=== PATIENT | female | born 1930 | race Caucasian/White ===

== ENCOUNTER 2017-09-09 05:28 | Inpatient (IN) | payer OTHER ==
[~2017-09-09] VITALS: Ht 152.4 cm; Wt 80.7 kg
[2017-09-09] MEDS ORDERED: MELO15TA13 PO (06:07)
[2017-09-09] MEDS ORDERED: LOSA50TA3 PO (06:07)
[2017-09-09] MEDS ORDERED: LR 1,000 ML IV SCH (11:38)
[2017-09-09] MEDS ORDERED: ONDANSETRON HCL 4 MG/2 ML VIAL IVP PRN ×2 (11:45→13:00)
[2017-09-09] MEDS ORDERED: MORPHINE 4 MG/ML INJ. SYRINGE IVP PRN ×3 (11:45)
[2017-09-09] MEDS ORDERED: ONDANSETRON 4 MG ODT TAB PO PRN (13:00)
[2017-09-09] MEDS ORDERED: HYDROcodone/ACETAMIN 5-325 MG TAB (NORCO/ VICODIN) PO PRN (13:00)
[2017-09-09] MEDS: MORPHINE 4 MG/ML INJ. SYRINGE ONE ×2 (13:20→13:33)
[2017-09-09 13:50] VITALS: BP_SYST 159
[2017-09-09 14:00] VITALS: BP_SYST 159
[2017-09-09] MEDS: D5/0.45 NS 1,000 ML IV SCH (14:47)
[2017-09-09 14:48] LABS: ALBUMIN 3.4 g/dL (3.4-4.8); CALCIUM 9.5 mg/dL (8.4-11.0)
[2017-09-09] MEDS: ACETAMINOPHEN 500 MG TABLET PO PRN ×2 (15:55→21:06)
[2017-09-09 16:40] VITALS: BP_SYST 156
[2017-09-09] MEDS ORDERED: SUCCINYLCHOLINE CHLORIDE 20 MG/ML(QUELICIN) IVP ONE (19:08)
[2017-09-09] MEDS ORDERED: SEVOFLURANE 15 MIN GAS INH ONE (19:08)
[2017-09-09] MEDS ORDERED: PROPOFOL 200MG/ 20ML VIAL (DIPRIVAN) IV ONE (19:08)
[2017-09-09] MEDS ORDERED: fentaNYL CITRATE 250 MCG/5 ML AMP IV ONE (19:08)
[2017-09-09] MEDS ORDERED: LR 1,000 ML IV.SOLN IV ONE (19:08)
[2017-09-09] MEDS ORDERED: MIDAZOLAM HCL 5 MG/ML VIAL (VERSED) IV ONE (19:08)
[2017-09-09] MEDS ORDERED: NS IRRIG SOLN 1000 ML IR ONE (19:08)
[2017-09-09] MEDS ORDERED: ONDANSETRON HCL 4 MG/2 ML VIAL IVP ONE (19:08)
[2017-09-09] MEDS ORDERED: CLINDAMYCIN PHOSPHATE 600 mg/50mL D5W IV ONE (19:08)
[2017-09-09] MEDS ORDERED: LIDOCAINE/EPI 1% 1:100000 20 ML VIAL INJ ONE (19:08)
[2017-09-09] MEDS ORDERED: DEXAMETHASONE SOD PHOSPHATE 4 MG/ML VIAL IVP ONE (19:08)
[2017-09-09 19:50] VITALS: BP_SYST 150
[2017-09-09] MEDS ORDERED: CALCIUM CARBONATE 650 MG TABLET PO SCH (21:00)
[2017-09-09] MEDS: CALCIUM CARBONATE/VITAMIN D3 1 TAB TABLET PO SCH (21:07)
[2017-09-09] MEDS: NORMAL SALINE 5 ML DISP.SYRIN IVF SCH (21:07)
[2017-09-10] VITALS: BP_SYST 125
[2017-09-10 04:00] VITALS: BP_SYST 132
[2017-09-10] MEDS: NORMAL SALINE 5 ML DISP.SYRIN IVF SCH (05:55)
[2017-09-10] MEDS ORDERED: LEVOTHYROXINE SODIUM 0.125 MG TABLET PO SCH (07:00)
[2017-09-10 08:22] VITALS: BP_SYST 127
[2017-09-10] MEDS: ACETAMINOPHEN 500 MG TABLET PO PRN (08:43)
[2017-09-10] MEDS: CALCIUM CARBONATE/VITAMIN D3 1 TAB TABLET PO SCH (08:43)
[2017-09-10] MEDS: D5/0.45 NS 1,000 ML IV SCH (08:47)
[2017-09-10] MEDS ORDERED: LOSARTAN POTASSIUM 50 MG TABLET (COZAAR) PO SCH (09:00)
[2017-09-10 10:49] LABS: CALCIUM 9.3 mg/dL (8.4-11.0)
[2017-09-10 12:00] VITALS: BP_SYST 130
[2017-09-10 13:28] VITALS: BP_SYST 130
[2017-09-10] MEDS ORDERED: HYDR-1189 (13:33)
[2017-09-10] MEDS ORDERED: CALC500T3 PO (13:34)
== END 2017-09-10 14:45 | disposition home or self-care (01) | DRG 627 ==
LOC: SMU 05:28
PROVIDERS: ADMIT Otolaryngology; ATTEND Otolaryngology
PROC: 0GTH0ZZ Resection of Right Thyroid Gland Lobe, Open Approach (ICD-10-PCS; 2017-09-09)
PROC: 0GTG0ZZ Resection of Left Thyroid Gland Lobe, Open Approach (ICD-10-PCS; principal; 2017-09-09 07:30)
DX: C73 Malignant neoplasm of thyroid gland (principal); E04.2 Nontoxic multinodular goiter; Z79.899 Other long term (current) drug therapy; Z90.710 Acquired absence of both cervix and uterus; Z88.0 Allergy status to penicillin
CPT/HCPCS: 36415; 71020-TC; 82040-TC; 82310-TC; 83970; 87081; 88307; C1782; J0330; J1100; J2250; J2270; J2405; J2704; J3010; J3490; J7030; J7120

== ENCOUNTER 2020-09-04 16:14 | Inpatient (IN) | payer OTHER, SELFPAY ==
[~2020-09-04] VITALS: Ht 152.4 cm; Wt 73.5 kg
[~2020-09-04 16:14] MED LIST: CALC500T3 PO; HYDR-1189; LOSA50TA3 PO; MELO15TA13 PO
[2020-09-04 16:20] VITALS: BP_SYST 120
--- NOTE | 2020-09-04 16:25 | NUR ---
Patient to ER bed 4 to gown for evaluation. Side rails up. Report given to DANIELLA LEVY .
--- NOTE | 2020-09-04 16:32 | NUR ---
ER Dr. LOYOLA at bedside examining patient.
--- NOTE | 2020-09-04 16:50 | NUR ---
pt bib her son for multiple c/o, hypotension, body aches, gen weak after receiving chemo. 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 right port-a-cath access. gambling monitor placed. will continue to monitor
[2020-09-04] MEDS ORDERED: NYSTATIN 500,000 UNITS/5 ML UDC PO ONE (17:00)
--- NOTE | 2020-09-04 17:05 | NUR ---
# 20 gauge angiocath placed to LAC. Use of asceptic technique. Opsite placed over site. Blood return noted. Blood for lab drawn from site. Flushed with 10 cc of normal saline. No evidence of infiltration noted. Patient tolerated well.
[2020-09-04 17:23] LABS: HEMOGLOBIN 8.1 g/dL (12.0-16.0); MEAN CORPUSCULAR HEMOGLOBIN 31 pg (27-31); MEAN CORPUSCULAR HGB CONC 33 % (32-36)
--- NOTE | 2020-09-04 17:30 | NUR ---
ua obtained via straight cath
[2020-09-04 17:38] LABS: HEMATOCRIT 24.8 % (36-48); MEAN CORPUSCULAR VOLUME 95 fL (79.0-98.0); RED BLOOD CELL COUNT(AUTO) 2.63 MIL/uL (4.2-6.2); RED CELL DISTRIBUTION WIDTH 14.6 % (9.0-15.0); WHITE BLOOD COUNT (AUTO) 12.2 K/uL (4.8-10.8)
[2020-09-04 17:43] LABS: ANION GAP 4 (5-15); CALCIUM 7.2 mg/dL (8.4-11.0); CHLORIDE 103 mmol/L (98-107); GLUCOSE 68 mg/dL (70-99); SODIUM SERUM 135 mmol/L (136-145)
[2020-09-04 17:44] LABS: CREATININE 1.24 mg/dL (0.55-1.30); UREA NITROGEN, BLOOD 26 mg/dL (8-21)
[2020-09-04 17:45] LABS: PLATELET COUNT (AUTO) 72 K/uL (130-430)
[2020-09-04 17:49] LABS: ALANINE AMINOTRANSFERASE 24 U/L (12-78); ALBUMIN 1.1 g/dL (3.4-4.8); ASPARTATE AMINOTRANSFERASE 41 U/L (10-37); TOTAL BILIRUBIN 0.7 mg/dL (0.0-1.0)
[2020-09-04 18:14] LABS: TOTAL IRON BIND. CAPACITY 91 ug/dL (250-450)
[2020-09-04 18:25] LABS: BAND % (MANUAL) 25 % (0-6); LYMPHOCYTES % (MANUAL) 12 % (20-46)
[2020-09-04 18:26] LABS: ATYPICAL LYMPHOCYTES % 0 % (0-0); BASOPHILS % (MANUAL) 0 % (0-2); EOSINOPHILS % (MANUAL) 0 % (0-7); METAMYELOCYTES % 3 % (0-0); MONOCYTES % (MANUAL) 2 % (0-11)
[2020-09-04 18:27] LABS: MYELOCYTES % 1 % (0-0)
[2020-09-04 18:28] LABS: CORRECTED WHITE BLOOD COUNT 11.6 K/uL (4.5-11.0)
--- NOTE | 2020-09-04 18:50 | NUR ---
covid swab collected and sent to the lab
--- NOTE | 2020-09-04 18:59 | NUR ---
Medication reconciliation completed with information provided by pt. Any prior medication reconciliation on file was reviewed and corrected.
[2020-09-04] MEDS ORDERED: NACL 0.9% 1,000 ML IV ONE ×3 (19:00→20:30)
--- NOTE | 2020-09-04 19:10 | NUR ---
currently infusing NS 500ml per MD order.
[2020-09-04 19:12] LABS: CLARITY/URINE HAZY (CLEAR); COLOR,URINE YELLOW (YELLOW); GLUCOSE,URINE NEGATIVE (NEGATIVE); KETONES,URINE NEGATIVE (NEGATIVE); PH,URINE 5.5 (5.0-8.0); PROTEIN URINE NEGATIVE (NEGATIVE)
[2020-09-04 19:13] LABS: BILIRUBIN,URINE NEGATIVE (NEGATIVE); BLOOD, URINE TRACE (NEGATIVE); LEUKOCYTE ESTERASE ,URINE NEGATIVE (NEGATIVE); NITRITE, URINE NEGATIVE (NEGATIVE); UROBILINOGEN,URINE 0.2 (0.2-1.0)
--- NOTE | 2020-09-04 19:14 | NUR ---
Report received from Liza LEVY for continuation of care.
[2020-09-04 19:15] LABS: BACTERIA,URINE MANY /HPF (None Seen); RBC,URINE 0-3 /HPF (0-3); WBC,URINE 0-3 /HPF (0-3)
[2020-09-04 19:17] LABS: TRICHOMONAS,URINE None Seen /HPF (None Seen); YEAST,URINE Moderate /HPF (None Seen)
[2020-09-04 19:18] LABS: MUCUS,URINE None Seen /LPF (None Seen)
--- NOTE | 2020-09-04 19:18 | NUR ---
Care endorsed to Phuong LEVY. Pt in stable condition.
[2020-09-04] MEDS ORDERED: cefTRIAXone 1 GM in D5W 50 ML IV ONE (19:30)
--- NOTE | 2020-09-04 19:50 | NUR ---
Note undone in EDM - 09/04/20 at 2151 by [id number] Patient given written and verbal discharge instructions and verbalizes understanding. Pt d/c to [facility]. ER discussed with patient the results and treatment provided. Patient in stable condition. ID arm band removed. Rx of HTZ 25 MG given. Patient educated on pain management and to follow up with PMD. Opportunity for questions provided and answered. Medication side effect fact sheet provided.
--- NOTE | 2020-09-04 20:36 | NUR ---
Pt blood consent signed. Waiting for PT INR labs for blood form to be sent to lab.
[2020-09-04] MEDS ORDERED: cefTRIAXone 1 GM VIAL ONE (21:01)
[2020-09-04 21:11] LABS: INR 1.2 (0.8-1.2)
--- NOTE | 2020-09-04 21:48 | NUR ---
Patient will be admitted to care of Dr Blair/ [facility]. Admitted to tele unit. Will go to room 114. Belongings list completed. Complete and up to date summary report printed. SBAR report to be given at bedside with opportunity for questions.
[2020-09-04 22:00] VITALS: BP_SYST 111
--- NOTE | 2020-09-04 22:00 | NUR ---
ADMISSION: The patient, MAHAD GONZALEZ V, 89 y/o, F admitted by KOLE IRIZARRY MD, was given written information regarding hospital policies, unit procedures and contact persons. Valuables were checked and DOCUMENTED.
--- NOTE | 2020-09-04 22:41 | NUR ---
Initial phys assessment Physical assessment done, pictures taken, patient resting in comfortable position, call light w/in reach.
[2020-09-04] MEDS ORDERED: ALBUMIN HUMAN 5% 500 ML IV ONE (22:45)
[2020-09-04] MEDS ORDERED: ALBUTEROL SULFATE 0.083% 2.5 MG/3 ML VIAL.NEB INH PRN (22:45)
[2020-09-04] MEDS ORDERED: NALOXONE HCL 0.4 MG/ML AMP (NARCAN) IVP PRN (22:45)
[2020-09-04 22:54] VITALS: BP_SYST 97
[2020-09-04] MEDS: NACL 0.9% 1,000 ML IV SCH (23:57)
--- NOTE | 2020-09-04 23:57 | NUR ---
IVF Hung new bag of NS and infusing as ordered, tolerating, no infiltration noted.
--- NOTE | 2020-09-05 00:04 | NUR ---
Dr. Solis s/w Dr. Solis and informed 5% Albumin is not available tonight and she said cancel tonight; TORB. she will wait till AM and review B/P.
[2020-09-05 00:25] VITALS: BP_SYST 97
[2020-09-05] MEDS: CEFEPIME 2 GM in D5W 100 ML IV SCH ×3 (00:57→22:00)
[2020-09-05] MEDS ORDERED: CEFEPIME 2 GM/VIAL (MAXIPIME) ONE (01:02)
--- NOTE | 2020-09-05 01:15 | NUR ---
consent for blood transf Consent for blood transfusion did not have witness signature from ER nurse, patient and doctor had signed. I asked patient again and witnessed consent, then I signed on consent form as witness, in order to proceed with transfusion.
--- NOTE | 2020-09-05 01:29 | NUR ---
BT INITIATION: Consent signed per patient, she is AOx4, agreeing to administration of blood. Blood has been type and crossmatched. Blood sent from blood bank. Information on unit of blood checked against patient wristband at bedside by two nurses. All information matches. Patient or responsible libertarian informed of potential complications associated with blood transfusion. Informed of possible transfusion reaction symptoms. Aware of need to notify nurse at once of itching, shortness of breath, flushing, feeling of impending doom, or other symptoms not previously present. Vital signs taken within 5 minutes prior to initiation of transfusion. RN will remain with patient for first 15 minutes of transfusion at which time vital signs will be re-assessed.
--- NOTE | 2020-09-05 01:33 | NUR ---
IV start Blood transfusion currently infusing via IV to LAC. New IV was started on left wrist in order to complete transfusion of antibiotic. #22 angio cath was placed to left wrist. Use of asceptic technique and blood return noted. Flushed with 10 cc of normal saline. No evidence of infiltration noted. Patient tolerated.
--- NOTE | 2020-09-05 07:30 | NUR ---
OPENING NOTES PT AWAKE, ALERT, AND ORIENTED X2. RE-ORIENTED PT TO TIME. NONLABORED BREATHING NOTED ON ROOM AIR. IV LINES INTACT AND PATENT, NO SIGNS OF INFILTRATION NOTED. BLOOD TRANSFUSION RUNNING ORDERED PER MD, TOLERATING WELL. NO ACUTE DISTRESS NOTED. BED LOCKED AND IN LOWEST POSITION. ALL NEEDS MET. CALL LIGHT IN REACH. FALL AND ASPIRATION PRECAUTIONS IN PLACE. CONTINUE TO MONITOR.
[2020-09-05 08:00] VITALS: BP_SYST 106
[2020-09-05] MEDS: NACL 0.9% 1,000 ML IV SCH ×2 (08:31→17:40)
--- NOTE | 2020-09-05 09:30 | NUR ---
BLOOD TRANSFUSION FINISHED. VITAL SIGNS STABLE. CONTINUE TO MONITOR.
[2020-09-05] MEDS: MELOXICAM 7.5 MG TABLET PO SCH (10:07)
--- NOTE | 2020-09-05 10:31 | NUR ---
PT STATES TAKING THYROID MEDICATIONS, SPOKE TO SON NII [phone] FOR UPDATED HOME MED LIST. NII STATED WILL CALL BACK WITH INFORMATION. AWAITING CALL BACK.
--- NOTE | 2020-09-05 10:34 | NUR ---
SPOKE TO DR. IRIZARRY REGARDING CODE STATUS, PT C/O PAIN WHEN URINATING, AND BLOODY STOOLS PER NOC NURSE. MD STATED WILL SEE PATIENT.
--- NOTE | 2020-09-05 10:59 | NUR ---
CONSULTATION PAGED REASON FOR CONSULTATION:MUCOSITIS WAS CONSULT CALLED?y PERSON WHO WAS NOTIFIED:SUSANNAH CONSULTING PHYSICIAN:EDIN GOYAL RECREATIONAL DIRECTOR SPECIALTY:INFECTIOUS DISEASE RECREATIONAL DIRECTOR PHONE NUMBER:[phone] REQUESTING PHYSICIAN:KOLE STALLINGS
[2020-09-05 11:33] LABS: HEMATOCRIT 35.6 % (36-48); HEMOGLOBIN 11.8 g/dL (12.0-16.0); MEAN CORPUSCULAR HEMOGLOBIN 31 pg (27-31); MEAN CORPUSCULAR HGB CONC 33 % (32-36); MEAN CORPUSCULAR VOLUME 93 fL (79.0-98.0); RED BLOOD CELL COUNT(AUTO) 3.82 MIL/uL (4.2-6.2); WHITE BLOOD COUNT (AUTO) 21.3 K/uL (4.8-10.8)
[2020-09-05 11:37] LABS: ALANINE AMINOTRANSFERASE 15 U/L (12-78); ALBUMIN 1.1 g/dL (3.4-4.8); ANION GAP 8 (5-15); ASPARTATE AMINOTRANSFERASE 42 U/L (10-37); CHLORIDE 105 mmol/L (98-107); GLUCOSE 84 mg/dL (70-99); POTASSIUM 3.7 mmol/L (3.5-5.1); SODIUM SERUM 137 mmol/L (136-145); TOTAL BILIRUBIN 0.9 mg/dL (0.0-1.0); UREA NITROGEN, BLOOD 25 mg/dL (8-21)
[2020-09-05] MEDS ORDERED: LIDOCAINE VISCOUS 2%, 15 ML UDC MM PRN (11:45)
[2020-09-05 12:00] VITALS: BP_SYST 108
[2020-09-05] MEDS ORDERED: ACYCLOVIR IV 500 MG in D5W 100 ML IV ONE (12:00)
--- NOTE | 2020-09-05 12:49 | NUR ---
ROUTINE MEDS ADMINISTERED ORDERED PER MD, EDUCATION GIVEN, TOLERATED WELL. CONTINUE TO MONITOR.
[2020-09-05 13:28] LABS: PLATELET COUNT (AUTO) 99 K/uL (130-430)
[2020-09-05] MEDS: MICAFUNGIN SODIUM 100 MG in NS 100 ML IV SCH (13:55)
--- NOTE | 2020-09-05 13:55 | NUR ---
routine meds administered as ordered per md, education given, tolerated well. continue to monitor.
[2020-09-05] MEDS ORDERED: LEVO137T2 PO (16:25)
[2020-09-05 16:30] VITALS: BP_SYST 118
[2020-09-05] MEDS ORDERED: ONDA4TAB5 PO (16:30)
[2020-09-05] MEDS ORDERED: POTA20TA83 PO (16:30)
[2020-09-05] MEDS ORDERED: FURO80TA3 PO (16:30)
[2020-09-05] MEDS ORDERED: ACETAMINOPHEN PO (16:42)
[2020-09-05] MEDS ORDERED: HYDROCODONE PO (16:42)
[2020-09-05] MEDS ORDERED: PROC10TA13 PO (16:42)
[2020-09-05] MEDS: MORPHINE 2 MG/ML INJ. SYRINGE IVP PRN (17:46)
--- NOTE | 2020-09-05 18:09 | NUR ---
routine meds administered as ordered per md, education given, tolerated well. continue to monitor.
--- NOTE | 2020-09-05 19:00 | NUR ---
CLOSING NOTES PT AWAKE AND ALERT, SITTING UP IN BED. NONLABORED BREATHING NOTED ON ROOM AIR, TOLERATING WELL. IV LINES INTACT AND PATENT, NO SIGNS OF INFILTRATION NOTED. NO ACUTE DISTRESS NOTED. BED LOCKED AND IN LOWEST POSITION. ALL NEEDS MET. CALL LIGHT IN REACH. FALL AND ASPIRATION PRECAUTIONS IN PLACE. WILL ENDORSE TO NOC NURSE. MED RECON UPDATE, WILL ENDORSE.
[2020-09-06] MEDS: NACL 0.9% 1,000 ML IV SCH ×2 (00:39→13:38)
[2020-09-06 01:14] VITALS: BP_SYST 130
[2020-09-06] MEDS: MORPHINE 2 MG/ML INJ. SYRINGE IVP PRN ×2 (05:26→14:34)
--- NOTE | 2020-09-06 08:00 | NUR ---
OPENING NOTES PATIENT AWAKE, ALERT AND ORIENTED X4. ABLE TO MAKE NEEDS KNOWN. IVF ONGOING. VS 97.8, 83, 133/66, 97%, 18. WILL CONTINUE TO MONITOR. PATIENT EDUCATED TO CALL FOR ASSIST BEFORE GETTING OUT OF BED.
[2020-09-06] MEDS ORDERED: ACYCLOVIR IV 500 MG in D5W 100 ML IV SCH (09:00)
[2020-09-06 09:06] LABS: BAND % (MANUAL) 12 % (0-6); LYMPHOCYTES % (MANUAL) 5 % (20-46)
[2020-09-06 09:07] LABS: ATYPICAL LYMPHOCYTES % 2 % (0-0); BASOPHILS % (MANUAL) 0 % (0-2); CORRECTED WHITE BLOOD COUNT 20.3 K/uL (4.5-11.0); EOSINOPHILS % (MANUAL) 0 % (0-7); METAMYELOCYTES % 3 % (0-0); MONOCYTES % (MANUAL) 8 % (0-11)
--- NOTE | 2020-09-06 09:28 | NUR ---
Nutrition Update Faheem Scale 15 noted. Pt admitted for anemia, sepsis. Diet: cardiac, puree BMI: 31.6 kg/m2 RD to follow per nutrition care standards.
--- NOTE | 2020-09-06 10:00 | NUR ---
PATIENT ASSISTED TO BATHROOM, HAD STOOL X1 WITH SANGUINOUS BLOOD NOTED. PATIENT KEPT CLEAN AND DRY. IVF ONGOING. PATIENT TOLERATING WELL. CHARGE NURSE ALYCIA AND KOLE NEWTON MADE AWARE. WILL CONTINUE TO MONITOR.
[2020-09-06] MEDS: CEFEPIME 2 GM in D5W 100 ML IV SCH ×2 (10:12→12:24)
[2020-09-06] MEDS: MELOXICAM 7.5 MG TABLET PO SCH (10:16)
--- NOTE | 2020-09-06 12:00 | NUR ---
PATIENT TOLERATED MEALS WELL. SEEN BY [facility] STAFF FOR POSSIBLE HOSPICE CARE. PATIENTS' SON CHERYLE BUSTILLO AWARE OF D/C HOME.
[2020-09-06 12:20] VITALS: BP_SYST 134
[2020-09-06] MEDS: MICAFUNGIN SODIUM 100 MG in NS 100 ML IV SCH (13:13)
--- NOTE | 2020-09-06 13:45 | NUR ---
SS NOTES/HOSPICE: BLANK DRILLER received a call from Maricarmen with [facility] (p: [phone], f: [phone]) stating they received a referral from Dr. Kathleen and consents have been signed by family. Moshe is requesting for clinicals;faxed. BLANK DRILLER notified April with HCP (p: [phone], f: [phone]) via voicemail and hospice order faxed.
--- NOTE | 2020-09-06 14:00 | NUR ---
IVF ONGOING. PATIENT X1 INCONTINENCE, KEPT CLEAN AND DRY. IV ACCESS DISCONTINUED AT THIS TIME. TIP INTACT, NO BLEEDING NOTED. DISCHARGE PACKAGE READY AT THIS TIME. PATIENT UNABLE TO SIGN DUE TO GENERALIZED WEAKNESS. ALL BELONGINGS WITH PATIENT. NO DISCREPANCY NOTED. WILL CONTINUE TO MONITOR.
[2020-09-06 15:19] VITALS: BP_SYST 132
[2020-09-06 16:08] VITALS: BP_SYST 132
--- NOTE | 2020-09-06 16:31 | NUR ---
PATIENT DISCHARGED WITH ALL BELONGINGS AND PAPER WORK. LEFT UNIT WITH MEDIC TRANSPORT STAFF, ANGEL VIA [facility]. CHARGE NURSE MADE AWARE.
== END 2020-09-06 16:08 | disposition hospice, home (50) | DRG 871 ==
LOC: SED 16:14 → STU 20:31 → SMU 09-05 15:59
PROVIDERS: ADMIT Internal Medicine Hospice and Palliative Medicine; ATTEND Internal Medicine Hospice and Palliative Medicine
PROC: 30233N1 Transfusion of Nonautologous Red Blood Cells into Peripheral Vein, Percutaneous Approach (ICD-10-PCS; principal; 2020-09-05)
DX: A41.9 Sepsis, unspecified organism (principal); E43 Unspecified severe protein-calorie malnutrition; L03.116 Cellulitis of left lower limb; L03.115 Cellulitis of right lower limb; C22.4 Other sarcomas of liver; B37.0 Candidal stomatitis; B37.49 Other urogenital candidiasis; C49.9 Malignant neoplasm of connective and soft tissue, unspecified; B00.2 Herpesviral gingivostomatitis and pharyngotonsillitis; E87.2 Acidosis; F03.90 Unspecified dementia, unspecified severity, without behavioral disturbance, psychotic disturbance, mood disturbance, and anxiety; Z20.828 Contact with and (suspected) exposure to other viral communicable diseases; M19.90 Unspecified osteoarthritis, unspecified site; I95.9 Hypotension, unspecified; D64.9 Anemia, unspecified; D69.6 Thrombocytopenia, unspecified; Z68.31 Body mass index [BMI] 31.0-31.9, adult; Z92.21 Personal history of antineoplastic chemotherapy; Z88.0 Allergy status to penicillin; Z85.05 Personal history of malignant neoplasm of liver; Z92.3 Personal history of irradiation
CPT/HCPCS: 36415; 36430; 71045; 80053; 81000-TC; 82272; 83540-TC; 83550-TC; 83605; 83880; 84484; 85007; 85027; 85610-TC; 86886; 86900; 86901; 86920; 87040-TC; 87086; 96361; 96365; 99285; G0378; J0133; J0692; J0696; J2001; J2248; J2270; J7030; J7050; J7060; P9021; P9041